=== PATIENT | male | born 1950 | race Caucasian/White ===

== ENCOUNTER 2020-12-05 20:05 | Emergency (ER) | payer MEDICARE, BC, SELFPAY ==
[2020-12-05 20:06] VITALS: BP 137/80; PULSE 91; RESP 17; TEMP 36.7; O2SAT 97; BMI 28.5
[2020-12-05 20:50] LABS: Basophils % 0.5 % (0.1-2.0); Eosinophils % 0.4 % (0.1-12.0); Hematocrit 45.1 % (42.0-52.0); Hemoglobin 15.7 g/dL (14.1-18.0); Lymphocytes # 0.5 K/mm3 (0.7-4.5); Lymphocytes % 11.9 % (10-50); Mean Corpuscular HGB Conc 34.7 g/dL (31.8-35.4); Mean Corpuscular Hemoglobin 30.4 pg (27.0-31.2); Mean Corpuscular Volume 87.7 fl (80-94); Monocytes # 0.6 K/mm3 (0.1-1.0); Monocytes % 12.8 % (1.7-9.3); Neutrophils # 3.3 K/mm3 (1.8-7.8); Neutrophils % 74.4 % (37.0-80.0); Platelet Count 244 K/mm3 (142-424); Red Blood Count 5.15 M/mm3 (4.60-6.20); Red Cell Distribution Width 14.2 % (11.5-17.5); White Blood Count 4.4 K/mm3 (4.8-10.8)
[2020-12-05 20:52] LABS: Potassium 3.6 mmoL/L (3.5-5.1); Sodium 142 mmol/L (136-145)
[2020-12-05 20:54] LABS: Chloride 109 mmol/L (98-107)
[2020-12-05 20:55] LABS: Alanine Aminotransferase 81 U/L (12-78); Albumin Level 4.8 g/dl (3.5-5.0); Albumin/Globulin Ratio 1.5 (1.1-1.8); Alkaline Phosphatase 77 U/L (38-126); Amylase 81 U/L (30-110); Anion Gap 20.6 mEq/L (5-15); Aspartate Amino Transferase 69 U/L (17-59); Blood Urea Nitrogen 20 mg/dl (9-20); Calcium 9.5 mg/dl (8.4-10.2); Carbon Dioxide 16 mmol/L (22.0-30.0); Creatinine Clearance Estimated 46 mL/min (50-200); Estimated Glomerular Filt Rate 33 ml/min (>60); GFR (African American) 40 ML/MIN (>60); Globulin 3.1 g/dL (1.3-3.2); Glucose 144 mg/dl (74-100); Lipase 137 U/L (23-300); Total Protein,Serum 7.9 g/dl (6.3-8.2)
[2020-12-05 20:57] LABS: Adenovirus F 40/41, stool Not Detected (NotDetected); Astrovirus Not Detected (NotDetected); Campylobacter Not Detected (NotDetected); Clostridium Difficile A/B, PCR Not Detected (NotDetected); Cryptosporidium Not Detected (NotDetected); Cyclospora Cayetanesis Not Detected (NotDetected); Entamoeba histolytica Not Detected (NotDetected); Giardia lamblia Not Detected (NotDetected); Microscopic, Urine URINE MICROSCOPIC (MICROSCOPIC); Norovirus Not Detected (NotDetected); Plesimonas Shigalloides, PCR Not Detected (NotDetected); Rotavirus A Not Detected (NotDetected); Salmonella, PCR Not Detected (NotDetected); Sapovirus Not Detected (NotDetected); Shiga-like toxin E coli Not Detected (NotDetected); Shigella Enterovasive E coli Not Detected (NotDetected); Vibrio Cholerae Not Detected (NotDetected); Vibrio, PCR Not Detected (NotDetected); Yersinia Entercolitica, PCR Not Detected (NotDetected)
[2020-12-05 21:01] LABS: Appearance,Urine SL CLOUDY (Clear); Bilirubin,Urine Negative (Negative); Blood, Urine Negative (Negative); Color,Urine DK YELLOW (Yellow); Glucose,Urine (UA) Negative (Negative); Ketones,Urine Negative (Negative); Leukocyte Esterase,Urine Negative (Negative); Nitrate,Urine Negative (Negative); Protein,Urine 1+ (Negative); Specific Gravity, Urine >= 1.030 (1.005-1.030); Urobilinogen,Urine 0.2 EU/dl (0.2)
[2020-12-05 21:08] LABS: Bacteria,Urine 2+ /lpf; RBC,Urine Occasional #/hpf (0-3)
[2020-12-05 21:25] LABS: C-Reactive Protein 44.4 mg/L (0-4)
[2020-12-05 21:31] LABS: Troponin I < 0.01 ng/ml (0.00-0.034)
[2020-12-05 21:40] LABS: Erythrocyte Sedimentation Rate 55 mm/hr (0-20); Procalcitonin 0.685 ng/mL (0.0-2.0)
[2020-12-05 22:40] LABS: Enteroaggregative E coli Detected (NotDetected)
[2020-12-05 22:41] LABS: Enteropathogenic E coli Detected (NotDetected); Enterotoxigenic E coli Detected (NotDetected)
--- NOTE | 2020-12-05 23:07 | PC.NURSE ---
@ [id number] Dr. Prince notified of diarrhea panel results.
--- NOTE | 2020-12-05 23:15 | [facility].EDNVD ---
ED Disposition Clinical Impression: Traveler's diarrhea, Renal insufficiency Disposition: Home, Self-Care Condition on Discharge: Good Instructions: DI for Diarrhea and Traveler's Diarrhea -- Adult Additional Instructions: fluids and use meds and see pcp for follow up Prescriptions: Ciprofloxacin HCl [Cipro 500mg Tab] 500 mg PO BID #20 tab Transmission Status: Pending to [id number] ondansetron HCL [Zofran 4mg Tab] 4 mg PO TID #21 tab Transmission Status: Pending to [id number] Referrals: Provider,Referral, [Primary Care Provider] - - Critical Care Critical Care Time: No Attestation: On 12/05/20, the high probability of a clinically significant, sudden or life threatening deterioration of the following system(s) required my full and direct attention, intervention and personal management. The time I documented below is in addition to time spent performing reported procedures but includes the following listed in this critical care notation. Medical Decision Making - Medical Records Medical records reviewed: Yes: I reviewed the patient's medical records. - Solo Inquiry Pt receiving controlled substance: No Vital Signs: 12/05/20 20:06 Temperature 98.0 F Temperature Source Oral Pulse Rate [Right] 91 H Respiratory Rate 17 Blood Pressure [Right Arm] 137/80 Blood Pressure Mean [Right Arm] 99 Blood Pressure Source [Right Arm] Automatic Cuff 02 Sat by Pulse Oximetry 97 Oxygen Delivery Method Room Air - Lab Data Lab results reviewed: Yes: I reviewed the patient's lab results. Lab Results 12/05/20 20:30: WBC 4.4 L, RBC 5.15, Hgb 15.7, Hct 45.1, MCV 87.7, MCH 30.4, MCHC 34.7, RDW 14.2, Plt Count 244, MPV 8.0, Neut % (Auto) 74.4, Lymph % (Auto) 11.9, O'Brien % (Auto) 12.8 H, Eos % (Auto) 0.4, Baso % (Auto) 0.5, Neut # (Auto) 3.3, Lymph # (Auto) 0.5 L, O'Brien # (Auto) 0.6, Eos # (Auto) 0.0, Baso # (Auto) 0.0, ESR 55 H 12/05/20 20:30: Sodium 142, Potassium 3.6, Chloride 109 H, Carbon Dioxide 16 L, Anion Gap 20.6 H, BUN 20, Creatinine 2.00 H, Estimated Creat Clear 46, Estimated GFR 33 L, Est GFR ( Amer) 40 L, Glucose 144 H, Calcium 9.5, Total Bilirubin 1.0, AST 69 H, ALT 81 H, Alkaline Phosphatase 77, Troponin I < 0.01, C-Reactive Protein 44.4 H, Total Protein 7.9, Albumin 4.8, Globulin 3.1, Albumin/Globulin Ratio 1.5, Amylase 81, Lipase 137, Procalcitonin 0.685 12/05/20 20:50: Urine Color Dk yellow, Urine Appearance Sl cloudy, Urine pH 6.0, Ur Specific Pavilion >= 1.030, Urine Protein 1+, Urine Glucose (UA) Negative, Urine Ketones Negative, Urine Blood Negative, Urine Nitrate Negative, Urine Bilirubin Negative, Urine Urobilinogen 0.2, Ur Leukocyte Esterase Negative, Urine RBC Occasional, Urine WBC 3-5, Ur Squamous Epith Cells 3-5, Urine Bacteria 2+ 12/05/20 20:50: Stl Aeromonas (PCR) Not detected, Stl C. cayetanensis PCR Not detected, Stool Rotavirus (PCR) Not detected, Stl Adenov F 40/41 PCR Not detected, Stool Astrovirus (PCR) Not detected, Stool Campylobacter PCR Not detected, Stl C.difficile Tox PCR Not detected, Stool Cryptosporidium PCR Not detected, Stl E.coli Shiga Tox PCR Not detected, Stool E coli O157 PCR Not detected, Stl Enterotoxigenic E PCR Detected A, Stool EPEC (PCR) Detected A, Stool EAEC (PCR) Detected A, Stl E. histolytica PCR Not detected, Stool Giardia Lamblia PCR Not detected, Stool Salmonella PCR Not detected, Stool Sapovirus (PCR) Not detected, Stl P. shigelloides PCR Not detected, Stl Shigella/EIEC PCR Not detected, St Y.enterocolitica PCR Not detected, Stool Vibrio (PCR) Not detected, Stl Vibrio cholerae PCR Not detected, Stl Norovirus GI/GII PCR Not detected Result diagrams: 12/05/20 20:30 12/05/20 20:30 Orders (Tests/Meds): ED MEDICATIONS Generic Name Dose Route Start Last Admin Trade Name Freq PRN Reason Stop Dose Admin Sodium Chloride 1,000 mls @ 999 mls/hr 12/05/20 20:45 12/05/20 20:48 Sod Chlor 0.9% 1000ml Bag IV 12/05/20 21:45 999 mls/hr .Q1H1M SC
[2020-12-05 23:39] VITALS: BP 129/72; PULSE 81; RESP 18; TEMP 36.7; O2SAT 97
== END 2020-12-05 23:44 | disposition home or self-care (01) ==
PROVIDERS: Emergency Provider Emergency Medicine
DX: A04.8 Other specified bacterial intestinal infections (principal); R19.7 Diarrhea, unspecified; R11.2 Nausea with vomiting, unspecified; N28.9 Disorder of kidney and ureter, unspecified
CPT/HCPCS: 96374; 80053; 81001; 82150; 83690; 84145; 84484; 85025; 85651; 86140; 87086; 87507; 96375; 99283; J2405